=== PATIENT | female | born 1945 | race Caucasian/White ===

== ENCOUNTER 2020-10-19 18:28 | Emergency (ER) | payer MEDICARE, BC ==
[2020-10-19] MEDS ORDERED: Acetaminophen 325 MG Tab PO ONE (19:24)
--- NOTE | 2020-10-19 19:31 | EDM.PDOC ---
ED HPI GENERAL MEDICAL PROBLEM - General Chief Complaint: Upper Extremity Injury/Pain Stated Complaint: FALL, LT HAND PAIN, LT SHOULDER PAIN Time Seen by Provider: 10/19/20 19:11 Source of Information: Reports: Patient History Limitations: Reports: No Limitations - History of Present Illness INITIAL COMMENTS - FREE TEXT/NARRATIVE: Patient is a 75-year-old female who presents today from a trip and fall. Patient that she was going up a curb when her foot got caught and she fell landing her left shoulder. Patient also was wearing glasses and suffered a little laceration on her cheek. Patient complains of left shoulder pain left wrist pain and some pain to her face. Patient denies any LOC confusion vision changes numbness weakness any extremities or other complaints. face/left hand Pain Score (Numeric/FACES): 5 - Related Data Allergies Allergy/AdvReac Type Severity Reaction Status Date / Time Unable to Assess Allergy Unverified 10/19/20 18:44 Home Meds: Home Meds . 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 Musculoskeletal History: Reports: Arthritis, Osteoporosis Neurological History: Reports: Seizure Psychiatric History: Reports: Anxiety Endocrine/Metabolic History: Reports: None Hematologic History: Reports: None Immunologic History: Reports: None Oncologic (Cancer) History: Reports: None Dermatologic History: Reports: None - Infectious Disease History Infectious Disease History: Reports: None - Past Surgical History Head Surgeries/Procedures: Reports: None HEENT Surgical History: Reports: None Cardiovascular Surgical History: Reports: None Respiratory Surgical History: Reports: None GI Surgical History: Reports: None Female Surgical History: Reports: None Endocrine Surgical History: Reports: None Neurological Surgical History: Reports: None Musculoskeletal Surgical History: Reports: None Oncologic Surgical History: Reports: None Dermatological Surgical History: Reports: None Social & Family History - Family History Family Medical History: No Pertinent Family History - Tobacco Use Tobacco Use Status *Q: Never Tobacco User - Caffeine Use Caffeine Use: Reports: None - Recreational Drug Use Recreational Drug Use: No Review of Systems - Review of Systems Review Of Systems: See Below Constitutional: Reports: No Symptoms Eyes: Reports: No Symptoms Ears: Reports: No Symptoms Nose: Reports: No Symptoms Mouth/Throat: Reports: No Symptoms Respiratory: Reports: No Symptoms Cardiovascular: Reports: No Symptoms GI/Abdominal: Reports: No Symptoms Genitourinary: Reports: No Symptoms Musculoskeletal: Reports: Arm Pain Skin: Reports: No Symptoms Neurological: Reports: No Symptoms Psychiatric: Reports: No Symptoms ED EXAM, GENERAL - Physical Exam Exam: See Below Exam Limited By: No Limitations General Appearance: Alert, WD/WN, No Apparent Distress Eye Exam: Bilateral Eye: EOMI, PERRL Respiratory/Chest: No Respiratory Distress, Lungs Clear Cardiovascular: Normal Peripheral Pulses, Regular Rate, Rhythm Back Exam: Normal Inspection, Full Range of Motion. No: Vertebral Tenderness Extremities: Normal Inspection, Normal Range of Motion, Joint Swelling (of hand ) Neurological: Alert, Oriented, CN II-XII Intact Course - Vital Signs Last Recorded V/S: Last Vital Signs Temp 98.1 F 10/19/20 18:42 Pulse 75 10/19/20 18:42 Resp 18 10/19/20 18:42 BP 131/59 L 10/19/20 18:42 Pulse Ox 96 10/19/20 18:42 - Orders/Labs/Meds Meds: Medications Discontinued Medications Generic Name Dose Route Start Last Admin Trade Name Juliusq PRN Reason Stop Dose Admin Acetaminophen 650 mg 10/19/20 19:24 10/19/20 20:34 Acetaminophen 325 Mg Tab PO 10/19/20 19:25 650 mg NOW ONE Administration - Re-Assessments/Exams Free Text/Narrative Re-Assessment/Exam: 10/19/20 21:04 Patient CTs are negative. Patient does have some lucency on the left wrist x- ray so she has area of point tenderness will place in a wrist splint and have patient follow-up with PMD. Abrasion surfaces not require sutures. Patient with areas of drop will splint her unassisted and there is no reason to suture the present today as there is no separation of skin. 10/19/20 21:06 What you are ordering Wrist splint Why you are ordering it Immobilization How it will benefit patient Mobilization and pain control How long is patient to use it 14 days repeat x-ray Departure - Departure Time of Disposition: 21:04 Disposition: Home, Self-Care 01 Condition: Good Clinical Impression: Fall, Wrist fracture - Discharge Information *PRESCRIPTION DRUG MONITORING PROGRAM REVIEWED*: Not Applicable *COPY OF PRESCRIPTION DRUG MONITORING REPORT IN PATIENT TYREL: Not Applicable Instructions: Wrist Fracture Treated With Immobilization, [id number] Referrals: PCP,Not In Area [Primary Care Provider] - Forms: ED Department Discharge Additional Instructions: The following information is given to patients seen in the emergency department who are being discharged to home. This information is to outline your options for follow-up care. We provide all patients seen in our emergency department with a follow-up referral. The need for follow-up, as well as the timing and circumstances, are variable depending upon the specifics of your emergency department visit. If you don't have a primary care physician on staff, we will provide you with a referral. We always advise you to contact your personal physician following an emergency department visit to inform them of the circumstance of the visit and for follow-up with them and/or the need for any referrals to a consulting specialist. The emergency department will also refer you to a specialist when appropriate. This referral assures that you have the opportunity for follow-up care with a specialist. All of these measure are taken in an effort to provide you with optimal care, which includes your follow-up. Under all circumstances we always encourage you to contact your private physician who remains a resource for coordinating your care. When calling for follow-up care, please make the office aware that this follow-up is from your recent emergency room visit. If for any reason you are refused follow-up, please contact the [facility] Emergency Department at and asked to speak to the emergency department charge nurse. Please follow up with your primary care physician. If you do not have a primary care physician, see below: [facility] [address] [place] [id number] [facility] [address] [place] [address] You are seen today after trip and fall. We did CAT scans of your head and your neck and we also did x-rays of your shoulder and wrist. There was an area of lucency that did not show clear fracture but since she has some tenderness in the area of the wrist we will place in a wrist splint as precaution. Recommended to follow-up with your primary doctor have repeat x-ray in 14 days. If you have any other concerns complaints please return to the ED. Sepsis Event Note (ED) - Evaluation Sepsis Screening Result: No Definite Risk - Focused Exam Vital Signs: Vital Signs Temp Pulse Resp BP Pulse Ox 10/19/20 18:42 98.1 F 75 18 131/59 L 96 - Assessment/Plan Plan: Patient is a 75-year-old female presents today for trip and fall. Patient has a small laceration to her cheek that would not require sutures. Patient will have CT of the head x-ray shoulder and wrist and reassess.
--- NOTE | 2020-10-19 20:26 | CR ---
INDICATION: Fall. TECHNIQUE: Left hand radiographs, 3 views. COMPARISON: None available. FINDINGS: Diffuse demineralization. No dislocation or displaced fracture. Apparent subtle lucency traversing the scaphoid waist on the frontal projection. Mild-moderate scattered degenerative changes predominating at the thumb base and index finger PIP joint. No radiopaque foreign body or soft tissue gas. IMPRESSION: 1. No dislocation or displaced fracture. 2. Apparent subtle lucency traversing the scaphoid waist, possibly artifactual but potentially a nondisplaced fracture if focal tenderness at this location. Dictated by Ernie Iyer MD @ 10/19/2020 8:25:54 PM Dictated by: Ernie Iyer MD @ 10/19/2020 20:26:00 (Electronically Signed)
--- NOTE | 2020-10-19 20:28 | CR ---
INDICATION: Fall. TECHNIQUE: Left shoulder radiographs, 3 views. COMPARISON: None available. FINDINGS: Diffuse demineralization. No dislocation or displaced fracture. The glenohumeral joint appears intact. Mild AC joint degenerative changes. No focal soft tissue abnormality. IMPRESSION: Left shoulder without dislocation or displaced fracture. Dictated by Ernie Iyer MD @ 10/19/2020 8:27:14 PM Dictated by: Ernie Iyer MD @ 10/19/2020 20:27:20 (Electronically Signed)
--- NOTE | 2020-10-19 20:39 | CT ---
INDICATION: Fall. TECHNIQUE: Head CT without intravenous contrast. Coronal and sagittal reformats. COMPARISON: None available. FINDINGS: No intracranial hemorrhage, extra-axial collection, or evidence of acute cortical infarction. Mild ventricular and sulcal prominence diffusely. Patchy periventricular white matter hypodensities, likely chronic small vessel ischemic changes. The cranium and orbits appear intact. Chronic appearing deformity of the left maxillary sinus, incompletely imaged. The imaged paranasal sinuses and mastoid air cells appear clear. IMPRESSION: No acute intracranial findings. Dictated by Ernie Iyer MD @ 10/19/2020 8:38:20 PM Please note that all CT scans at this facility use dose modulation, iterative reconstruction, and/or weight-based dosing when appropriate to reduce radiation dose to as low as reasonably achievable. Dictated by: Ernie Iyer MD @ 10/19/2020 20:38:25 (Electronically Signed)
--- NOTE | 2020-10-19 20:43 | CT ---
INDICATION: Fall. TECHNIQUE: Cervical spine CT without intravenous contrast. Coronal and sagittal reformats. COMPARISON: None available. FINDINGS: Slight reversal of the usual cervical lordosis without static spondylolisthesis. The atlantooccipital and atlantoaxial articulations are intact. Diffuse demineralization. Cervical vertebral body heights are maintained. No acute fracture. Mild-moderate multilevel spondylosis predominating at C5-C7. No high-grade spinal canal stenosis. Non thickened prevertebral soft tissues. Imaged upper lungs demonstrate biapical scarring. IMPRESSION: Cervical spine without static subluxation or acute fracture. Dictated by Ernie Iyer MD @ 10/19/2020 8:41:29 PM Please note that all CT scans at this facility use dose modulation, iterative reconstruction, and/or weight-based dosing when appropriate to reduce radiation dose to as low as reasonably achievable. Dictated by: Ernie Iyer MD @ 10/19/2020 20:41:35 (Electronically Signed)
== END 2020-10-19 21:55 | disposition home or self-care (01) ==
LOC: MW.ED 18:28
DX: S62.102A Fracture of unspecified carpal bone, left wrist, initial encounter for closed fracture (principal); W01.0XXA Fall on same level from slipping, tripping and stumbling without subsequent striking against object, initial encounter
CPT/HCPCS: 70450; 72125; 73030; 73130; 99284; A9270; 99283